=== PATIENT | male | born 1995 ===

== ENCOUNTER 2019-03-06 15:26 | Emergency (ER) ==
[~2019-03-06] VITALS: Ht 167.6 cm; Wt 90.9 kg
[2019-03-06] MEDS ORDERED: HydrOXYzine HCL 25 MG TABLET PO ONE (16:30)
[2019-03-06 16:35] VITALS: BP 132/74
== END 2019-03-06 17:20 | disposition home or self-care (01) ==
LOC: EMS 15:29
DX: F41.9 Anxiety disorder, unspecified (principal); F17.210 Nicotine dependence, cigarettes, uncomplicated
CPT/HCPCS: 99406